=== PATIENT | female | born 1970 | race Two or more races ===

== ENCOUNTER 2018-08-13 07:12 | Outpatient (CLI) | payer OTHER | END 2018-08-13 07:22 | disposition home or self-care (01) | LOC: NUCLEAR 07:12 | DX: D35.1 Benign neoplasm of parathyroid gland (principal) | CPT/HCPCS: 78072; A9500 ==

== ENCOUNTER 2018-09-07 08:07 | Outpatient (CLI) | payer OTHER | END 2018-09-07 09:03 | disposition home or self-care (01) | LOC: SONOGRAMA 08:07 → MAMO-SONO 10:15 | DX: M05.79 Rheumatoid arthritis with rheumatoid factor of multiple sites without organ or systems involvement (principal); M75.01 Adhesive capsulitis of right shoulder ==

== ENCOUNTER 2018-09-24 11:37 | Outpatient (CLI) | payer OTHER | END 2018-09-24 11:39 | disposition home or self-care (01) | LOC: SONOGRAMA 11:37 | DX: M05.79 Rheumatoid arthritis with rheumatoid factor of multiple sites without organ or systems involvement (principal); M75.01 Adhesive capsulitis of right shoulder ==

== ENCOUNTER 2019-01-02 08:28 | Outpatient (CLI) | payer OTHER | END 2019-01-02 08:49 | disposition home or self-care (01) | LOC: RX STUDY 08:28 | DX: D50.8 Other iron deficiency anemias (principal); R19.5 Other fecal abnormalities; R19.8 Other specified symptoms and signs involving the digestive system and abdomen ==

== ENCOUNTER → 2019-02-21 | Outpatient (CLI) | payer OTHER | END | disposition home or self-care (01) | LOC: NUCLEAR 09:00 | DX: K31.84 Gastroparesis (principal) | CPT/HCPCS: 78264; A9541 ==

== ENCOUNTER 2022-06-22 07:40 | Outpatient (CLI) | payer OTHER | END 2022-06-22 07:41 | disposition home or self-care (01) | LOC: NUCLEAR 07:40 | PROVIDERS: ATTEND Internal Medicine Gastroenterology | DX: K31.84 Gastroparesis (principal); R11.2 Nausea with vomiting, unspecified | CPT/HCPCS: 78264; A9541 ==

== ENCOUNTER 2022-07-12 07:16 | Outpatient (CLI) | payer OTHER | END 2022-07-12 07:27 | disposition home or self-care (01) | LOC: TOM 07:16 | PROVIDERS: ATTEND Internal Medicine Gastroenterology | DX: R10.13 Epigastric pain (principal); R10.31 Right lower quadrant pain ==

== ENCOUNTER 2022-07-28 08:49 | Outpatient (CLI) | payer OTHER | END 2022-07-28 08:56 | disposition home or self-care (01) | LOC: MRI 08:49 | PROVIDERS: ATTEND Internal Medicine Gastroenterology | DX: R93.3 Abnormal findings on diagnostic imaging of other parts of digestive tract (principal) | CPT/HCPCS: 72197 ==

== ENCOUNTER 2022-09-30 10:38 | Outpatient (CLI) | payer OTHER | END 2022-09-30 14:56 | disposition home or self-care (01) | LOC: RAD 10:38 | PROVIDERS: ATTEND Internal Medicine Cardiovascular Disease | DX: M19.041 Primary osteoarthritis, right hand (principal); M19.042 Primary osteoarthritis, left hand; I10 Essential (primary) hypertension ==

== ENCOUNTER → 2023-03-16 | Outpatient (CLI) | payer OTHER | END | disposition home or self-care (01) | LOC: SONOGRAMA 08:27 | PROVIDERS: ATTEND Surgery | DX: N63.20 Unspecified lump in the left breast, unspecified quadrant (principal) ==

== ENCOUNTER 2023-05-25 10:52 | Outpatient (CLI) | payer OTHER | END 2023-05-25 11:01 | disposition home or self-care (01) | LOC: SONOGRAMA 10:52 | PROVIDERS: ATTEND Internal Medicine Rheumatology | DX: M05.79 Rheumatoid arthritis with rheumatoid factor of multiple sites without organ or systems involvement (principal) ==

== ENCOUNTER 2023-06-23 13:44 | Outpatient (CLI) | payer OTHER | END 2023-06-23 14:04 | disposition home or self-care (01) | LOC: MAMO-SONO 13:44 | PROVIDERS: ATTEND Obstetrics & Gynecology | DX: N60.11 Diffuse cystic mastopathy of right breast (principal); N60.12 Diffuse cystic mastopathy of left breast; Z12.31 Encounter for screening mammogram for malignant neoplasm of breast ==

== ENCOUNTER 2024-11-11 14:51 | Outpatient (CLI) | payer OTHER | END 2024-11-11 14:52 | disposition home or self-care (01) | LOC: MAMO-SONO 14:51 | PROVIDERS: ATTEND Obstetrics & Gynecology | DX: N60.11 Diffuse cystic mastopathy of right breast (principal); N60.12 Diffuse cystic mastopathy of left breast ==

== ENCOUNTER 2025-05-09 08:15 | Outpatient (CLI) | payer OTHER | END 2025-05-09 08:29 | disposition home or self-care (01) | LOC: MRI 08:15 | DX: R25.1 Tremor, unspecified (principal); G40.209 Localization-related (focal) (partial) symptomatic epilepsy and epileptic syndromes with complex partial seizures, not intractable, without status epilepticus; M79.10 Myalgia, unspecified site | CPT/HCPCS: 70551 ==